=== PATIENT | female | born 2000 | race Caucasian/White ===

== ENCOUNTER 2019-11-05 10:28 | Emergency (ER) | payer OTHER, SELFPAY ==
[2019-11-06 12:55] LABS: SARS-CoV-2 MS2 Positive; SARS-CoV-2 N Gene Positive; SARS-CoV-2 S Gene Positive; SARS-CoV-2 orf1ab Positive
== END 2019-11-05 11:21 | disposition home or self-care (01) ==
LOC: ERS 10:28
DX: U07.1 COVID-19 (principal)
CPT/HCPCS: 87635; 99282; U0003